=== PATIENT | female | born 1995 | race Caucasian/White ===

== ENCOUNTER 2017-02-28 15:03 | Emergency (ER) | payer MEDICAID ==
[~2017-02-28] VITALS: Ht 167.6 cm; Wt 59.0 kg
[2017-02-28] MEDS ORDERED: ACETAMINOPHEN 325MG TABLET PO ONE (21:30)
[2017-02-28] MEDS ORDERED: CEPHALEXIN 500MG CAPSULE PO ONE (21:30)
[2017-02-28 21:50] VITALS: BP 118/78
== END 2017-02-28 22:02 | disposition home or self-care (01) ==
LOC: ER 19:49
DX: O98.811 Other maternal infectious and parasitic diseases complicating pregnancy, first trimester (principal); B35.3 Tinea pedis; Z3A.08 8 weeks gestation of pregnancy; Z86.19 Personal history of other infectious and parasitic diseases
CPT/HCPCS: 99283; Z7610